=== PATIENT | male | born 1970 | race Two or more races ===

== ENCOUNTER 2019-12-28 08:23 | Emergency (ER) | payer SELFPAY ==
[~2019-12-28] VITALS: Ht 175.3 cm; Wt 103.1 kg
[2019-12-28 08:35] VITALS: BP 136/85
[2019-12-28] MEDS ORDERED: DIPH,PERTUSS(ACELL),TET VAC/PF 0.5 ML SYRINGE. VAX IM ONE (09:15)
[2019-12-28] MEDS ORDERED: LIDOCAINE 1% Multi-Dose 20 ML VIAL. INJ ONE (09:15)
--- NOTE | 2019-12-28 09:38 | PHYS DOC ---
Past Medical History Past Medical History: No Pertinent History Past Surgical History: No Surgical History Smoking Status: Never Smoker Alcohol Use: Occasionally General Adult EDM: Chief Complaint: LACERATION/AVULSION HPI: HPI: 49-year-old male presenting the emergency department today with a laceration to his left forearm when he was moving around tiles he cut his left forearm. He has a sharp shooting pain in this area bleeding is well controlled with pre ssure. His tetanus is out of date. Onset today, just prior to arrival. Duration constant. No alleviating factors. He denies any other injuries. Review of systems negative for any other injuries, chest pain shortness of breath abdominal pain vomiting. All other review of systems negative. ED course: 49-year-old male presenting with a laceration to his left forearm which was sutured in the emergency department after being cleaned out. Will discharge and follow-up with PCP in 10 days for suture removal. Heart Score: Risk Factors: Risk Factors: DM, Current or recent (<one month) smoker, HTN, HLP, family history of CAD, obesity. Risk Scores: Score 0 - 3: 2.5% MACE over next 6 weeks - Discharge Home Score 4 - 6: 20.3% MACE over next 6 weeks - Admit for Clinical Observation Score 7 - 10: 72.7% MACE over next 6 weeks - Early Invasive Strategies Current Medications: Current Medications Medications (Trade) Dose Ordered Sig/Brittani Start Time Stop Time Status Last Admin Dose Admin Diphtheria/ Tetanus/Acell Pertussis (ADACEL TDap SYRINGE) 0.5 ml ONCE ONCE 12/28/19 09:15 12/28/19 09:16 DC Lidocaine HCl (Lidocaine 1% 20ml Vial) 20 ml 1X ONCE 12/28/19 09:15 12/28/19 09:16 DC Allergies: Allergies: Allergies Coded Allergies Type Severity Reaction Last Updated Verified No Known Drug Allergies 12/28/19 No Physical Exam: PE: Constitutional: Well developed, well nourished, no acute distress, non-toxic appearance. [] HENT: Normocephalic, atraumatic, bilateral external ears normal, oropharynx moist, no oral exudates, nose normal. [] Eyes: PERRLA, EOMI, conjunctiva normal, no discharge. [] Neck: Normal range of motion, no tenderness, supple, no stridor. [] Cardiovascular:Heart rate regular rhythm, no murmur [] Lungs & Thorax: Bilateral breath sounds clear to auscultation [] Abdomen: Bowel sounds normal, soft, no tenderness, no masses, no pulsatile masses. [] Skin: Warm, dry, no erythema, no rash. [] Back: No tenderness, no CVA tenderness. [] Extremities: The left forearm has a 3 cm laceration that is linear with a piece of overlying skin in the middle that is detached. No foreign bodies. Clean wound. Palpable pulse distally with 2-second cap refill. Normal motor and sensory function of the left forearm and hand. No other injuries noted. Neurologic: Alert and oriented X 3, normal motor function, normal sensory fun ction, no focal deficits noted. [] Psychologic: Affect normal, judgement normal, mood normal. [] Current Patient Data: Vital Signs: Vital Signs Date Time Temp Pulse Resp B/P (MAP) Pulse Ox O2 Delivery O2 Flow Rate FiO2 12/28/19 08:35 69 20 136/85 (102) 95 Room Air 12/28/19 08:35 96.0 96.0 EKG: EKG: [] Radiology/Procedures: Radiology/Procedures: [] Course & Med Decision Making: Course & Med Decision Making Pertinent Labs and Imaging studies reviewed. (See chart for details) [] Dragon Disclaimer: DragRegister My Info Disclaimer: This electronic medical record was generated, in whole or in part, using a voice recognition dictation system. Departure Departure Impression: Primary Impression: Forearm laceration Disposition: 01 HOME, SELF-CARE Condition: STABLE Referrals: JADE GALLOWAY MD (PCP) Patient Instructions: Laceration Care, Adult Additional Instructions: You will need these sutures removed by your primary physician in 10-14 days. Justicifation of Admission Dx: Justifications for Admission: Justification of Admission Dx: N/A Laceration Repair Lac Repair Indication: left arm lac Procedure: The patient was placed in the appropriate position and anesthesia around the left forearm with 1% lidocaine . The area was then cleansed using 250 cc of saline and Betadine overlying.. The laceration was closed using simple interrupted technique using nonabsorbable sutures. No deep sutures placed. No foreign bodies or tendon injuries noted. Superficial wound. No tendons visible. 8 sutures placed in a simple interrupted fashion. Wound is covered with a nonadherent dressing. Total repaired wound length: 3cm Other Items: The patient tolerated the procedure well. Complications: none. RONA BRIGGS MD Dec 28, 2019 09:38
== END 2019-12-28 10:07 | disposition home or self-care (01) ==
LOC: ER 08:23
DX: S51.812A Laceration without foreign body of left forearm, initial encounter (principal); Y28.8XXA Contact with other sharp object, undetermined intent, initial encounter; Y93.89 Activity, other specified; Y92.89 Other specified places as the place of occurrence of the external cause; Y99.8 Other external cause status
CPT/HCPCS: 12002; 90471; 90715; 99283; J3490